=== PATIENT | female | born 1990 | race American Indian/Alaskan Native ===

== ENCOUNTER 2018-03-05 13:07 | Emergency (ER) | payer SELFPAY ==
[2018-03-05 14:12] VITALS: BP 137/66
--- NOTE | 2018-03-05 14:53 | Emergency Department Report ---
ED Back Pain/Injury HPI - General Chief Complaint: Extremity Problem,Nontraumatic Stated Complaint: LOWER BACK/LEG PAIN Source: patient Limitations: No Limitations - History of Present Illness Initial Comments: This is a 27-year-old -Portuguese female presents with low back pain radiating into left lower extremity. She was diagnosed with sciatica during . She reports pain is 10 out of 10 on pain scale with a throbbing sensation. Pain is worse with movement and last for hours. Patient states symptoms initially started out his tingling sensation in progressively increased over the past 2 days. She recently moved here and does not have a primary care provider to follow-up with. Patient denies recent injury, numbness or tingling, swelling, erythema, fever. MD Complaint: back pain Onset/Timin -: days(s) Similar Symptoms Previously: Yes Place: home Radiation: left leg Severity: severe Severity scale (0 -10): 10 Quality: other (throbbing) Consistency: intermittent Improves With: none Worsens With: movement, walking Context: unknown Associated Symptoms: denies other symptoms Treatments Prior to Arrival: NSAIDS - Related Data Previous Rx's Medication Instructions Recorded Last Taken Type Loratadine [Claritin] 10 mg PO DAILY #30 tablet 06/21/13 Unknown Rx Prednisone 40 mg PO QDAY #10 tablet 06/21/13 Unknown Rx Clindamycin [Clindamycin CAP] 300 mg PO Q6H #40 capsule 11/16/14 Unknown Rx HYDROcodone/APAP 5-325 [[place] 1 each PO Q6HR PRN #15 tablet 11/16/14 Unknown Rx 5-325 mg TAB] Ibuprofen [Motrin 800 MG tab] 800 mg PO TID PRN #60 tablet 11/16/14 Unknown Rx Baclofen [Lioresal] 5 mg PO TID PRN #12 tab 03/05/18 Unknown Rx Ibuprofen [Motrin 800 MG tab] 800 mg PO Q8HR PRN #15 tablet 03/05/18 Unknown Rx Allergies Allergy/AdvReac Type Severity Reaction Status Date / Time Penicillins Allergy Hives Verified 06/21/13 14:44 ED Review of Systems ROS: Stated complaint: LOWER BACK/LEG PAIN Other details as noted in HPI Constitutional: denies: chills, fever Respiratory: denies: cough, shortness of breath, wheezing Cardiovascular: denies: chest pain, palpitations Gastrointestinal: denies: abdominal pain, nausea, diarrhea Musculoskeletal: back pain (low back pain radiating to left lower extremity). denies: joint swelling, arthralgia Skin: denies: rash, lesions Neurological: denies: headache, weakness, paresthesias Psychiatric: denies: anxiety, depression ED Past Medical Hx - Past Medical History Vaginal deliveries x 2. sciatica Family history: no significant family history ED Back Pain Physical Exam - Exam General: Vital signs noted. No distress. Alert and acting appropriately. Back/Abdomen: Yes Sacroiliac Tenderness (above the left sacroiliac joint), Yes Straight Leg Raise Pain (positive on left), No Abdominal Tenderness, No Perithoracic Tenderness, No Perilumbar Tenderness, No Flank Tenderness Neuro: Yes Normal Sensation, Yes Normal DTR's, Yes Normal Gait, No Motor Weakness ED Course Vital Signs 03/05/18 14:09 Temperature 99.1 F Pulse Rate 84 Respiratory 18 Rate Blood Pressure 137/66 O2 Sat by Pulse 100 Oximetry ED Medical Decision Making - Radiology Data Radiology results: report reviewed, image reviewed FINAL REPORT EXAM: XR SPINE LUMBOSACRAL 2-3V HISTORY: low back pain radiating to LLE TECHNIQUE: 3 views of the lumbar spine PRIORS: None. FINDINGS: Vertebral compression fracture: None Anterolisthesis: None Retrolisthesis: None Disc narrowing: L5-S1 slight Degenerative change: Multilevel slight at the facet joints IMPRESSION: No acute skeletal pathology Multilevel slight degenerative change L5-S1 slight disc narrowing - Medical Decision Making Patient was examined by me. Vitals are normal and patient is in no acute distress. Given ibuprofen 800 mg po once while ER. Obtained x-ray of L-spine. X-rays dictated by radiologist and report reviewed by myself. No acute skeletal pathology. Multilevel slight degenerative change. L5-S1 slight disc narrowing. Patient informed of results. Start ibuprofen and baclofen for sciatica Plan discussed with patient to discharge home and treat outpatient. She agrees with ER plan. Patient discharged home in stable condition. Follow up with PCP in 2-3 days. Critical care attestation.: If time is entered above; I have spent that time in minutes in the direct care of this critically ill patient, excluding procedure time. ED Disposition Clinical Impression: Low back pain radiating to left leg, Sciatica of left side Disposition: - TO HOME OR SELFCARE Is pt being admited?: No Does the pt Need Aspirin: No Condition: Stable Instructions: Sciatica (ED) Additional Instructions: Rest Use ice or heat on affected area for 20 minutes and off for 2 hours. Take pain medication as needed for pain. Don't drive or operate heavy machinery while taking muscle relaxers because they may cause drowsiness. Follow up with Primary Care Provider in 2-3 days. Prescriptions: Baclofen [Lioresal] 5 mg PO TID PRN #12 tab PRN Reason: spasm Ibuprofen [Motrin 800 MG tab] 800 mg PO Q8HR PRN #15 tablet PRN Reason: Pain , Severe (7-10) Referrals: DIONICIO LOWERY MD [Staff Physician] - 3-5 Days [facility] [Outside] - 3-5 Days [facility] [Outside] - 3-5 Days Forms: Work/School Release Form(ED) Time of Disposition: 17:07 Print Language: PORTUGUESE
--- NOTE | 2018-03-05 16:49 | XRay Report ---
FINAL REPORT EXAM: XR SPINE LUMBOSACRAL 2-3V HISTORY: low back pain radiating to LLE TECHNIQUE: 3 views of the lumbar spine PRIORS: None. FINDINGS: Vertebral compression fracture: None Anterolisthesis: None Retrolisthesis: None Disc narrowing: L5-S1 slight Degenerative change: Multilevel slight at the facet joints IMPRESSION: No acute skeletal pathology Multilevel slight degenerative change L5-S1 slight disc narrowing
== END 2018-03-05 17:17 | disposition home or self-care (01) ==
LOC: ED 13:07
DX: M54.42 Lumbago with sciatica, left side (principal); M79.605 Pain in left leg; Z88.0 Allergy status to penicillin
CPT/HCPCS: 72100; 99283

== ENCOUNTER 2018-10-30 01:04 | Emergency (ER) | payer SELFPAY ==
[2018-10-30 01:18] VITALS: BP 149/81
--- NOTE | 2018-10-30 03:53 | Emergency Department Report ---
ED Back Pain/Injury HPI - General Chief Complaint: Back Pain/Injury Stated Complaint: BACK PAIN Time Seen by Provider: 10/30/18 03:39 Source: patient Limitations: No Limitations - History of Present Illness Initial Comments: Pt is a 28 yo female who presents with acute on chronic lower back pain that began two days ago. She states she was bending over at work when she began to feel the pain. she states she has pain in the left lower back, left gluteus which radiates down the posterior side of the LLE. She has a hx of DDD and sciatica on the left side. She states she has had this for three years. She states it occurred during her and she went to see an orthospine doctor in [place], [place] who recommended she follow back up once she had her child but she did not. She denies any fall, injury, trauma, bladder or bowel incontinence, numbness or weakness. She states it hurts worse with movement. - Related Data Previous Rx's Medication Instructions Recorded Last Taken Type Loratadine [Claritin] 10 mg PO DAILY #30 tablet 06/21/13 Unknown Rx Prednisone 40 mg PO QDAY #10 tablet 06/21/13 Unknown Rx Clindamycin [Clindamycin CAP] 300 mg PO Q6H #40 capsule 11/16/14 Unknown Rx HYDROcodone/APAP 5-325 [[place] 1 each PO Q6HR PRN #15 tablet 11/16/14 Unknown Rx 5-325 mg TAB] Ibuprofen [Motrin 800 MG tab] 800 mg PO TID PRN #60 tablet 11/16/14 Unknown Rx Baclofen [Lioresal] 5 mg PO TID PRN #12 tab 03/05/18 Unknown Rx Ibuprofen [Motrin 800 MG tab] 800 mg PO Q8HR PRN #15 tablet 03/05/18 Unknown Rx Cyclobenzaprine [Flexeril] 10 mg PO QHS PRN #10 tablet 10/30/18 Unknown Rx Ibuprofen [Motrin 800 MG tab] 800 mg PO Q8HR PRN #14 tablet 10/30/18 Unknown Rx Prednisone [predniSONE 5 mg (6-Day 5 mg PO .TAPER #1 tab.ds.pk 10/30/18 Unknown Rx Pack, 21 Tabs)] Allergies Allergy/AdvReac Type Severity Reaction Status Date / Time Penicillins Allergy Hives Verified 06/21/13 14:44 ED Review of Systems ROS: Stated complaint: BACK PAIN Other details as noted in HPI Comment: All other systems reviewed and negative ED Past Medical Hx - Past Medical History Previous Medical History?: Yes Hx Hypertension: Yes (with ) Additional medical history: Vaginal deliveries x 2. sciatica - Surgical History Past Surgical History?: Yes Additional Surgical History: x1. tubal ligation - Social History Smoking Status: Never Smoker Substance Use Type: None - Medications Home Medications: Home Medications Medication Instructions Recorded Confirmed Last Taken Type Loratadine [Claritin] 10 mg PO DAILY #30 tablet 06/21/13 Unknown Rx Prednisone 40 mg PO QDAY #10 tablet 06/21/13 Unknown Rx Clindamycin [Clindamycin CAP] 300 mg PO Q6H #40 capsule 11/16/14 Unknown Rx HYDROcodone/APAP 5-325 [[place] 1 each PO Q6HR PRN #15 tablet 11/16/14 Unknown Rx 5-325 mg TAB] Ibuprofen [Motrin 800 MG tab] 800 mg PO TID PRN #60 tablet 11/16/14 Unknown Rx Baclofen [Lioresal] 5 mg PO TID PRN #12 tab 03/05/18 Unknown Rx Ibuprofen [Motrin 800 MG tab] 800 mg PO Q8HR PRN #15 tablet 03/05/18 Unknown Rx Cyclobenzaprine [Flexeril] 10 mg PO QHS PRN #10 tablet 10/30/18 Unknown Rx Ibuprofen [Motrin 800 MG tab] 800 mg PO Q8HR PRN #14 tablet 10/30/18 Unknown Rx Prednisone [predniSONE 5 mg (6-Day 5 mg PO .TAPER #1 tab.ds.pk 10/30/18 Unknown Rx Pack, 21 Tabs)] ED Physical Exam - General Limitations: No Limitations General appearance: alert, in no apparent distress - Head Head exam: Present: atraumatic, normocephalic - Eye Eye exam: Present: normal appearance, PERRL - Neck Neck exam: Present: normal inspection, full ROM. Absent: tenderness - Respiratory Respiratory exam: Present: normal lung sounds bilaterally. Absent: respiratory distress, wheezes, rales, rhonchi, stridor, chest wall tenderness, accessory muscle use, decreased breath sounds, prolonged expiratory - Cardiovascular Cardiovascular Exam: Present: regular rate, normal rhythm, normal heart sounds. Absent: systolic murmur, diastolic murmur, rubs, gallop - Back Exam Back exam: Present: normal inspection, full ROM, paraspinal tenderness (left lumbar paraspinal TTP, no midline C-spine, T-spine, or L-spine tenderness, no step offs, no deformities, TTP over the left gluteus joanne). Absent: vertebral tenderness - Neurological Exam Neurological exam: Present: alert, oriented X3, CN II-XII intact, normal gait, other (normal finger to nose, normal heel to jacobs, equal photogrammetric surveyor strength, 5/5 strength in the BUE/BLE, sensation intact, no focal neuro deficit). Absent: motor sensory deficit - Psychiatric Psychiatric exam: Present: normal affect, normal mood - Skin Skin exam: Present: warm, dry, intact ED Course Vital Signs 10/30/18 01:15 Temperature 98 F Pulse Rate 96 H Respiratory 18 Rate Blood Pressure 149/81 O2 Sat by Pulse 100 Oximetry ED Medical Decision Making - Medical Decision Making Pt is a 28 yo female who presents with acute on chronic lower back pain that began two days ago. She states she was bending over at work when she began to feel the pain. she states she has pain in the left lower back, left gluteus which radiates down the posterior side of the LLE. She has a hx of DDD and sciatica on the left side. She states she has had this for three years. She states it occurred during her and she went to see an orthospine doctor in [place], [place] who recommended she follow back up once she had her child but she did not. She denies any fall, injury, trauma, bladder or bowel incontinence, numbness or weakness. She states it hurts worse with movement. no midline C- spine, T-spine, or L-spine tenderness on exam, no step offs, no deformities, no focal deficits on examination. pt given anti-inflammatory, muscle relaxer, and medrol dose pack. advised to take medication as prescribed. only use muscle relaxer as needed and do not drive or operate heavy machinery while taking. please follow up with orthospine doctor and PCP in the next 2-3 days. return to the emergency room for any new or worsening symptoms. pt given handout on sciatica stretches. pt given list of community resources. discussed with pt that future medications for her chronic back pain would need to be through an orthospine doctor or primary care doctor. Critical care attestation.: If time is entered above; I have spent that time in minutes in the direct care of this critically ill patient, excluding procedure time. ED Disposition Clinical Impression: Low back pain Qualifiers: Chronicity: chronic Back pain laterality: left Sciatica presence: with sciatica Sciatica laterality: sciatica of left side Qualified Code(s): M54.42 - Lumbago with sciatica, left side Disposition: TO HOME OR SELFCARE Is pt being admited?: No Does the pt Need Aspirin: No Condition: Stable Instructions: Chronic Back Pain (ED) Additional Instructions: Please follow up with an orthospine doctor in the next 2-3 days. please follow up with a primary care doctor in the next 2-3 days. given list of community resources. future refills for chronic back pain will need to be through a primary care doctor or orthospine doctor. may use ice, rest, heat, epsom salt bath. take medication as prescribed. only use muscle relaxer as needed and do not drive or operate heavy machinery while taking. return to the emergency room for any new or worsening symptoms. given handout on stretches for sciatica. [facility] Address: [address] [place] [id number] Prescriptions: Cyclobenzaprine [Flexeril] 10 mg PO QHS PRN #10 tablet PRN Reason: Muscle Spasm Ibuprofen [Motrin 800 MG tab] 800 mg PO Q8HR PRN #14 tablet PRN Reason: Pain, Moderate (4-6) Prednisone [predniSONE 5 mg (6-Day Pack, 21 Tabs)] 5 mg PO .TAPER #1 tab.ds.pk Referrals: orthospine, doctor [Other] - 2-3 Days [place] GLADIS PLUNKETT MD [Primary Care Provider] - 2-3 Days Forms: Work/School Release Form Time of Disposition: 03:54 Print Language: UKRAINIAN
== END 2018-10-30 04:20 | disposition home or self-care (01) ==
LOC: ED 01:04
DX: G89.29 Other chronic pain (principal); M54.5 Low back pain; I10 Essential (primary) hypertension; Z98.51 Tubal ligation status; Z88.0 Allergy status to penicillin

== ENCOUNTER 2019-12-06 09:11 | Emergency (ER) | payer SELFPAY ==
[2019-12-06 09:43] VITALS: BP 153/90
--- NOTE | 2019-12-06 10:33 | Emergency Department Report ---
Blank Doc - Documentation Documentation: 29-year-old female that presents with left tonsilar swelling. Patient is unable to keep secretions. Has some hoarseness. Exam: left tonsillar swelling with some deviation of uvula to the right. This initial assessment/diagnostic orders/clinical plan/treatment(s) is/are dueñas bject to change based on patient's health status, clinical progression and re- assessment by fellow clinical providers in the ED. Further treatment and workup at subsequent clinical providers discretion. Patient/guardians urged not to elope from the ED as their condition may be serious if not clinically assessed and managed. Initial orders include: 1- Patient sent to Main for further evaluation and treatment. 2- labs for possible CT to r/o tonsilar abscess
[2019-12-06 11:01] LABS: Basophils % (Auto) 0.2 % (0.0-1.8); Eosinophils % (Auto) 0.1 % (0.0-4.3); Hematocrit 35.9 % (30.3-42.9); Hemoglobin 11.7 gm/dl (10.1-14.3); Lymphocytes # (Auto) 1.9 K/mm3 (1.2-5.4); Lymphocytes % (Auto) 12.2 % (13.4-35.0); Mean Corpuscular HGB Conc 33 % (30-34); Mean Corpuscular Volume 80 fl (79-97); Monocytes # (Auto) 0.8 K/mm3 (0.0-0.8); Monocytes % (Auto) 5.2 % (0.0-7.3); Platelet Count 235 K/mm3 (140-440); Red Blood Count 4.51 M/mm3 (3.65-5.03); Red Cell Distribution Width 16.4 % (13.2-15.2)
[2019-12-06 11:20] LABS: BUN/Creatinine Ratio 10; Blood Urea Nitrogen 6 mg/dL (7-17); Calcium 8.9 mg/dL (8.4-10.2); Hemolysis Index 28
[2019-12-06] MEDS ORDERED: ACETAMINOPEN W/CODEINE 120-12MG ORAL LIQD 5 ML PO ONE (11:29)
--- NOTE | 2019-12-06 11:39 | Emergency Department Report ---
ED ENT HPI - General Chief complaint: Sore Throat Stated complaint: CHILLS/SORE THROAT/EAR ACHE/HEACHEACH Time Seen by Provider: 12/06/19 10:29 Source: patient Mode of arrival: Ambulatory Limitations: No Limitations - History of Present Illness Initial comments: Patient is a 29-year-old female who presents to ED complaining of throat pain 2 days. Patient describes pain as throbbing in nature, 8 out of 10 intensity, nonradiating, localized to his throat. Admits pain with swallowing and eating. Patient admits no appetite due to throat pain. Patient admits fever for the first 2 days but not at the moment. Patient denies nausea/vomiting/abdominal pain/shortness of breath/chest pain/headache. MD complaint: sore throat Severity scale (0 -10): 8 Worsens with: swallowing - Related Data Previous Rx's Medication Instructions Recorded Last Taken Type Loratadine (Nf) [Claritin] 10 mg PO DAILY #30 tablet 06/21/13 Unknown Rx Prednisone 40 mg PO QDAY #10 tablet 06/21/13 Unknown Rx Clindamycin [Clindamycin CAP] 300 mg PO Q6H #40 capsule 11/16/14 Unknown Rx HYDROcodone/APAP 5-325 [[place] 1 each PO Q6HR PRN #15 tablet 11/16/14 Unknown Rx 5-325 mg TAB] Ibuprofen [Motrin 800 MG tab] 800 mg PO TID PRN #60 tablet 11/16/14 Unknown Rx Baclofen [Lioresal] 5 mg PO TID PRN #12 tab 03/05/18 Unknown Rx Ibuprofen [Motrin 800 MG tab] 800 mg PO Q8HR PRN #15 tablet 03/05/18 Unknown Rx Cyclobenzaprine [Flexeril] 10 mg PO QHS PRN #10 tablet 10/30/18 Unknown Rx Ibuprofen [Motrin 800 MG tab] 800 mg PO Q8HR PRN #14 tablet 10/30/18 Unknown Rx Prednisone [predniSONE 5 mg (6-Day 5 mg PO .TAPER #1 tab.ds.pk 10/30/18 Unknown Rx Pack, 21 Tabs)] Acetamin/Codeine 120-12Mg/5 ml 5 ml PO TID PRN #80 ml 12/06/19 Unknown Rx [Tylenol/Codeine] Amoxicillin [Trimox CAP] 500 mg PO Q8H #21 capsule 12/06/19 Unknown Rx Nystas/Diphen/Xyl Visc/Mylanta 15 ml MM Q6H PRN #120 ml 12/06/19 Unknown Rx [Magic Mouthwash] Allergies Allergy/AdvReac Type Severity Reaction Status Date / Time Penicillins Allergy Hives Verified 12/06/19 09:41 ED Dental HPI - General Chief complaint: Sore Throat Stated complaint: CHILLS/SORE THROAT/EAR ACHE/HEACHEACH Time Seen by Provider: 12/06/19 10:29 Source: patient Mode of arrival: Ambulatory Limitations: No Limitations - Related Data Previous Rx's Medication Instructions Recorded Last Taken Type Loratadine (Nf) [Claritin] 10 mg PO DAILY #30 tablet 06/21/13 Unknown Rx Prednisone 40 mg PO QDAY #10 tablet 06/21/13 Unknown Rx Clindamycin [Clindamycin CAP] 300 mg PO Q6H #40 capsule 11/16/14 Unknown Rx HYDROcodone/APAP 5-325 [[place] 1 each PO Q6HR PRN #15 tablet 11/16/14 Unknown Rx 5-325 mg TAB] Ibuprofen [Motrin 800 MG tab] 800 mg PO TID PRN #60 tablet 11/16/14 Unknown Rx Baclofen [Lioresal] 5 mg PO TID PRN #12 tab 03/05/18 Unknown Rx Ibuprofen [Motrin 800 MG tab] 800 mg PO Q8HR PRN #15 tablet 03/05/18 Unknown Rx Cyclobenzaprine [Flexeril] 10 mg PO QHS PRN #10 tablet 10/30/18 Unknown Rx Ibuprofen [Motrin 800 MG tab] 800 mg PO Q8HR PRN #14 tablet 10/30/18 Unknown Rx Prednisone [predniSONE 5 mg (6-Day 5 mg PO .TAPER #1 tab.ds.pk 10/30/18 Unknown Rx Pack, 21 Tabs)] Acetamin/Codeine 120-12Mg/5 ml 5 ml PO TID PRN #80 ml 12/06/19 Unknown Rx [Tylenol/Codeine] Amoxicillin [Trimox CAP] 500 mg PO Q8H #21 capsule 12/06/19 Unknown Rx Nystas/Diphen/Xyl Visc/Mylanta 15 ml MM Q6H PRN #120 ml 12/06/19 Unknown Rx [Magic Mouthwash] Allergies Allergy/AdvReac Type Severity Reaction Status Date / Time Penicillins Allergy Hives Verified 12/06/19 09:41 ED Review of Systems ROS: Stated complaint: CHILLS/SORE THROAT/EAR ACHE/HEACHEACH Other details as noted in HPI Comment: All other systems reviewed and negative ED Past Medical Hx - Past Medical History Hx Hypertension: Yes (with ) Additional medical history: Vaginal deliveries x 2. sciatica - Surgical History Additional Surgical History: x1. tubal ligation - Social History Smoking Status: Never Smoker Substance Use Type: None - Medications Home Medications: Home Medications Medication Instructions Recorded Confirmed Last Taken Type Loratadine (Nf) [Claritin] 10 mg PO DAILY #30 tablet 06/21/13 Unknown Rx Prednisone 40 mg PO QDAY #10 tablet 06/21/13 Unknown Rx Clindamycin [Clindamycin CAP] 300 mg PO Q6H #40 capsule 11/16/14 Unknown Rx HYDROcodone/APAP 5-325 [[place] 1 each PO Q6HR PRN #15 tablet 11/16/14 Unknown Rx 5-325 mg TAB] Ibuprofen [Motrin 800 MG tab] 800 mg PO TID PRN #60 tablet 11/16/14 Unknown Rx Baclofen [Lioresal] 5 mg PO TID PRN #12 tab 03/05/18 Unknown Rx Ibuprofen [Motrin 800 MG tab] 800 mg PO Q8HR PRN #15 tablet 03/05/18 Unknown Rx Cyclobenzaprine [Flexeril] 10 mg PO QHS PRN #10 tablet 10/30/18 Unknown Rx Ibuprofen [Motrin 800 MG tab] 800 mg PO Q8HR PRN #14 tablet 10/30/18 Unknown Rx Prednisone [predniSONE 5 mg (6-Day 5 mg PO .TAPER #1 tab.ds.pk 10/30/18 Unknown Rx Pack, 21 Tabs)] Acetamin/Codeine 120-12Mg/5 ml 5 ml PO TID PRN #80 ml 12/06/19 Unknown Rx [Tylenol/Codeine] Amoxicillin [Trimox CAP] 500 mg PO Q8H #21 capsule 12/06/19 Unknown Rx Nystas/Diphen/Xyl Visc/Mylanta 15 ml MM Q6H PRN #120 ml 12/06/19 Unknown Rx [Magic Mouthwash] ED Physical Exam - General Limitations: No Limitations General appearance: alert, in no apparent distress - Head Head exam: Present: atraumatic, normocephalic - Eye Eye exam: Present: normal appearance - ENT ENT exam: Present: mucous membranes moist - Expanded ENT Exam Expanded Mouth exam: Present: normal external inspection Teeth exam: Present: normal inspection Throat exam: Positive: tonsillar erythema, tonsillomegaly, tonsillar exudate - Neck Neck exam: Present: normal inspection, full ROM, lymphadenopathy. Absent: tenderness - Respiratory Respiratory exam: Present: normal lung sounds bilaterally. Absent: respiratory distress - Cardiovascular Cardiovascular Exam: Present: regular rate, normal rhythm. Absent: systolic murmur, diastolic murmur, rubs, gallop - GI/Abdominal GI/Abdominal exam: Present: soft, normal bowel sounds - Extremities Exam Extremities exam: Present: normal inspection - Back Exam Back exam: Present: normal inspection - Neurological Exam Neurological exam: Present: alert, oriented X3 - Psychiatric Psychiatric exam: Present: normal affect, normal mood - Skin Skin exam: Present: warm, dry, intact, normal color. Absent: rash ED Course Vital Signs 12/06/19 09:42 Temperature 98.2 F Pulse Rate 87 Respiratory 20 Rate Blood Pressure 153/90 O2 Sat by Pulse 100 Oximetry ED Medical Decision Making - Lab Data Result diagrams: 12/06/19 10:39 12/06/19 10:39 - Medical Decision Making 29-year-old male presents with acute bacterial pharyngitis. ED course: Rapid strep tests ordered rapid strep test negative. Is a clinical diagnosis of a bacterial tonsillitis. Will treat Patient received 1 dose of Tylenol, 60 mg of prednisone. Fever responsive to one dose of Tylenol. Vital signs stable patient is in no acute or respiratory distress. Discussed findings with patient about the positive strep. Discussed treatment in ED with patient Discussed the patient that strep throat is contagious and to limit sharing spoons and such. Discussed with patient to get tested for COVID if she is worried. Discussed with patient follow-up with primary care physician. Patient verbally states he understands and will comply to follow-up. Critical care attestation.: If time is entered above; I have spent that time in minutes in the direct care of this critically ill patient, excluding procedure time. ED Disposition Clinical Impression: Pharyngitis, acute, Acute bacterial tonsillitis, Pharyngitis Disposition: - TO HOME OR SELFCARE Is pt being admited?: No Does the pt Need Aspirin: No Condition: Stable Instructions: Strep Throat (ED), Tonsillitis (ED) Additional Instructions: Make sure to follow up with the primary care physician as discussed. Take all your medications as you've been prescribed. If you have any worsening symptoms or develop new symptoms please return to ED immediately. Prescriptions: Nystas/Diphen/Xyl Visc/Mylanta [Magic Mouthwash] 15 ml MM Q6H PRN #120 ml PRN Reason: Sore Throat Amoxicillin [Trimox CAP] 500 mg PO Q8H #21 capsule Acetamin/Codeine 120-12Mg/5 ml [Tylenol/Codeine] 5 ml PO TID PRN #80 ml PRN Reason: Pain Referrals: [facility] [Outside] - 3-5 Days [facility] [Outside] - 3-5 Days Forms: Work/School Release Form(ED) Time of Disposition: 16:33
[2019-12-06] MEDS ORDERED: predniSONE 20 MG TAB PO ONE (11:41)
[2019-12-06] MEDS ORDERED: MAGIC MOUTHWASH 30ML PO SCH (12:00)
== END 2019-12-06 13:22 | disposition home or self-care (01) ==
LOC: ED 09:11
DX: J02.9 Acute pharyngitis, unspecified (principal); H92.09 Otalgia, unspecified ear; I10 Essential (primary) hypertension; Z98.890 Other specified postprocedural states; Z98.51 Tubal ligation status; Z88.0 Allergy status to penicillin
CPT/HCPCS: 36415; 80048; 84703; 85025; 87116; 87430; 99283; J7512

== ENCOUNTER 2020-01-30 11:10 | Emergency (ER) | payer SELFPAY ==
[2020-01-30 11:19] VITALS: BP 174/90
--- NOTE | 2020-01-30 13:38 | Emergency Department Report ---
ED Back Pain/Injury HPI - General Chief Complaint: Extremity Problem,Nontraumatic Stated Complaint: SCIATICA Time Seen by Provider: 01/30/20 12:17 Source: patient Limitations: No Limitations - History of Present Illness Initial Comments: 29-year-old obese -[place] female with a past medical history of recurrent presents to the emergency department complaining of continued pain to the left back and buttocks region lasting just over a week. She was seen here 1 week ago for unrelated issue but states the sciatica was present and then she received steroids during her visit to treat her respiratory problems states that that did help mildly but symptoms did not resolve and are beginning to work to worsen again and affecting her ability to work and she seeks pain medication to make the symptoms more tolerable so that she can perform her duties at work. Reports no loss of bowel or bladder, no saddle paresthesia, no fever, chills, sweats no numbness or tingling. MD Complaint: back pain Similar Symptoms Previously: No Place: home Severity: mild, moderate Quality: burning, sharp, dull Consistency: constant Improves With: movement Worsens With: movement Context: turning/twisting, bending Associated Symptoms: denies: weakness, numbness, fever/chills, constipation, headaches, abdominal pain, nausea/vomiting, rash, seizure, shortness of breath - Related Data Previous Rx's Medication Instructions Recorded Last Taken Type Loratadine (Nf) [Claritin] 10 mg PO DAILY #30 tablet 06/21/13 Unknown Rx Prednisone 40 mg PO QDAY #10 tablet 06/21/13 Unknown Rx Clindamycin [Clindamycin CAP] 300 mg PO Q6H #40 capsule 11/16/14 Unknown Rx HYDROcodone/APAP 5-325 [[place] 1 each PO Q6HR PRN #15 tablet 11/16/14 Unknown Rx 5-325 mg TAB] Ibuprofen [Motrin 800 MG tab] 800 mg PO TID PRN #60 tablet 11/16/14 Unknown Rx Baclofen [Lioresal] 5 mg PO TID PRN #12 tab 03/05/18 Unknown Rx Ibuprofen [Motrin 800 MG tab] 800 mg PO Q8HR PRN #15 tablet 03/05/18 Unknown Rx Cyclobenzaprine [Flexeril] 10 mg PO QHS PRN #10 tablet 10/30/18 Unknown Rx Ibuprofen [Motrin 800 MG tab] 800 mg PO Q8HR PRN #14 tablet 10/30/18 Unknown Rx Prednisone [predniSONE 5 mg (6-Day 5 mg PO .TAPER #1 tab.ds.pk 10/30/18 Unknown Rx Pack, 21 Tabs)] Acetamin/Codeine 120-12Mg/5 ml 5 ml PO TID PRN #80 ml 12/06/19 Unknown Rx [Tylenol/Codeine] Amoxicillin [Trimox CAP] 500 mg PO Q8H #21 capsule 12/06/19 Unknown Rx Nystas/Diphen/Xyl Visc/Mylanta 15 ml MM Q6H PRN #120 ml 12/06/19 Unknown Rx [Magic Mouthwash] Acetaminophen/Codeine [Tylenol 1 tab PO Q8H PRN #4 tab 01/25/20 Unknown Rx /Codeine # 3 tab] Prednisone [predniSONE 5 mg (6-Day 5 mg PO .TAPER #1 tab.ds.pk 01/25/20 Unknown Rx Pack, 21 Tabs)] Ketorolac [Toradol] 10 mg PO Q6H PRN #14 tablet 01/30/20 Unknown Rx methOCARBAMOL [Robaxin TAB] 750 mg PO Q8H PRN #14 tablet 01/30/20 Unknown Rx Allergies Allergy/AdvReac Type Severity Reaction Status Date / Time Penicillins Allergy Hives Verified 12/06/19 09:41 ED Review of Systems ROS: Stated complaint: SCIATICA Other details as noted in HPI Comment: All other systems reviewed and negative ED Past Medical Hx - Past Medical History Previous Medical History?: No Hx Hypertension: Yes (with ) Additional medical history: Vaginal deliveries x 2. sciatica - Surgical History Past Surgical History?: Yes Additional Surgical History: x1. tubal ligation - Social History Smoking Status: Never Smoker Substance Use Type: None - Medications Home Medications: Home Medications Medication Instructions Recorded Confirmed Last Taken Type Loratadine (Nf) [Claritin] 10 mg PO DAILY #30 tablet 06/21/13 Unknown Rx Prednisone 40 mg PO QDAY #10 tablet 06/21/13 Unknown Rx Clindamycin [Clindamycin CAP] 300 mg PO Q6H #40 capsule 11/16/14 Unknown Rx HYDROcodone/APAP 5-325 [[place] 1 each PO Q6HR PRN #15 tablet 11/16/14 Unknown Rx 5-325 mg TAB] Ibuprofen [Motrin 800 MG tab] 800 mg PO TID PRN #60 tablet 11/16/14 Unknown Rx Baclofen [Lioresal] 5 mg PO TID PRN #12 tab 03/05/18 Unknown Rx Ibuprofen [Motrin 800 MG tab] 800 mg PO Q8HR PRN #15 tablet 03/05/18 Unknown Rx Cyclobenzaprine [Flexeril] 10 mg PO QHS PRN #10 tablet 10/30/18 Unknown Rx Ibuprofen [Motrin 800 MG tab] 800 mg PO Q8HR PRN #14 tablet 10/30/18 Unknown Rx Prednisone [predniSONE 5 mg (6-Day 5 mg PO .TAPER #1 tab.ds.pk 10/30/18 Unknown Rx Pack, 21 Tabs)] Acetamin/Codeine 120-12Mg/5 ml 5 ml PO TID PRN #80 ml 12/06/19 Unknown Rx [Tylenol/Codeine] Amoxicillin [Trimox CAP] 500 mg PO Q8H #21 capsule 12/06/19 Unknown Rx Nystas/Diphen/Xyl Visc/Mylanta 15 ml MM Q6H PRN #120 ml 12/06/19 Unknown Rx [Magic Mouthwash] Acetaminophen/Codeine [Tylenol 1 tab PO Q8H PRN #4 tab 01/25/20 Unknown Rx /Codeine # 3 tab] Prednisone [predniSONE 5 mg (6-Day 5 mg PO .TAPER #1 tab.ds.pk 01/25/20 Unknown Rx Pack, 21 Tabs)] Ketorolac [Toradol] 10 mg PO Q6H PRN #14 tablet 01/30/20 Unknown Rx methOCARBAMOL [Robaxin TAB] 750 mg PO Q8H PRN #14 tablet 01/30/20 Unknown Rx ED Physical Exam - General Limitations: No Limitations General appearance: alert, in no apparent distress - Head Head exam: Present: atraumatic, normocephalic - Eye Eye exam: Present: normal appearance - ENT ENT exam: Present: mucous membranes moist - Neck Neck exam: Present: normal inspection - Respiratory Respiratory exam: Present: normal lung sounds bilaterally. Absent: respiratory distress - Cardiovascular Cardiovascular Exam: Present: regular rate, normal rhythm. Absent: systolic murmur, diastolic murmur, rubs, gallop - GI/Abdominal GI/Abdominal exam: Present: soft, normal bowel sounds - Extremities Exam Extremities exam: Present: normal inspection - Back Exam Back exam: Present: normal inspection, tenderness (Tenderness to palpation to the left sacroiliac joint and sciatic region. Range of motion noted. Straight leg raises is negative. Strength is 5 pulses 2+). Absent: CVA tenderness (R), CVA tenderness (L) - Neurological Exam Neurological exam: Present: alert, oriented X3, CN II-XII intact - Psychiatric Psychiatric exam: Present: normal affect, normal mood - Skin Skin exam: Present: warm, dry, intact, normal color. Absent: rash ED Course Vital Signs 01/30/20 11:18 Temperature 97.9 F Pulse Rate 116 H Respiratory 18 Rate Blood Pressure 174/90 [Right] O2 Sat by Pulse 97 Oximetry Critical care attestation.: If time is entered above; I have spent that time in minutes in the direct care of this critically ill patient, excluding procedure time. ED Disposition Clinical Impression: Sciatica Disposition: DC-01 TO HOME OR SELFCARE Is pt being admited?: No Does the pt Need Aspirin: No Condition: Stable Instructions: Sciatica (ED), Lumbar Radiculopathy (ED), Ice Pack Application (ED) Prescriptions: methOCARBAMOL [Robaxin TAB] 750 mg PO Q8H PRN #14 tablet PRN Reason: sciaTIC PAIN Ketorolac [Toradol] 10 mg PO Q6H PRN #14 tablet PRN Reason: Pain Referrals: PRIMARY CARE, [Primary Care Provider] - 3-5 Days DIONICIO LOWERY MD [Staff Physician] - 3-5 Days
== END 2020-01-30 14:38 | disposition home or self-care (01) ==
LOC: ED 11:10
DX: M54.32 Sciatica, left side (principal); M54.31 Sciatica, right side; I10 Essential (primary) hypertension; Z98.51 Tubal ligation status; Z98.890 Other specified postprocedural states; Z79.899 Other long term (current) drug therapy; Z88.0 Allergy status to penicillin
CPT/HCPCS: 99282